=== PATIENT | male | born 1995 | race Caucasian/White ===

== ENCOUNTER 2018-12-12 20:15 | Emergency (ER) | payer OTHER ==
[~2018-12-12] VITALS: Ht 172.7 cm; Wt 84.5 kg
[2018-12-12] MEDS ORDERED: ACETAMINOPHEN TAB 650MG DOSE (2X325MG) PO ONE (20:30)
[2018-12-12 20:59] VITALS: BP 140/79
[2018-12-12 21:05] LABS: INFLUENZA A AMPLIFICATION NEGATIVE (NEGATIVE); INFLUENZA B AMPLIFICATION NEGATIVE (NEGATIVE)
--- NOTE | 2018-12-12 22:06 | REP ---
Clinical: Acute cough . Comparison: None . Technique: PA and lateral. Findings: The mediastinum and cardiac silhouette are normal. There is subtle right middle lobe atelectasis cannot be excluded and should be correlated with physical examination and auscultation. No effusion. No pneumothorax. The skeletal structures are intact and normal. Impression: 1. Possible right middle lobe atelectasis. Electronically Signed by Kale Blevins MD 12/12/2018 09:57 P
[2018-12-12] MEDS ORDERED: VENTAER INH (22:52)
[2018-12-12] MEDS ORDERED: ZITHTAB PO (22:52)
[2018-12-12] MEDS ORDERED: AZITHROMYCIN 250 MG TAB PO ONE (23:00)
== END 2018-12-12 22:57 | disposition home or self-care (01) ==
LOC: M ED 20:15
DX: J40 Bronchitis, not specified as acute or chronic (principal); F17.210 Nicotine dependence, cigarettes, uncomplicated